=== PATIENT | male | born 1995 | race Two or more races ===

== ENCOUNTER 2017-09-05 17:40 | Emergency (ER) | payer SELFPAY ==
[~2017-09-05] VITALS: Ht 180.3 cm; Wt 57.5 kg
[2017-09-05] MEDS ORDERED: ONDANSETRON ODT 4 MG PO ONE (18:00)
[2017-09-05] MEDS ORDERED: SODIUM CHLORIDE FLUSH 10ML SYR IVF ONE (18:00)
[2017-09-05] MEDS ORDERED: SODIUM CHLORIDE 0.9% 1,000ML IVBOLUS ONE (18:00)
[2017-09-05] MEDS ORDERED: ONDANSETRON ODT 4 MG ONE ×2 (18:06→18:37)
[2017-09-05 18:30] LABS: BASOPHILS # (AUTO) 0.03 x10^3/uL (0-0.3); BASOPHILS % (AUTO) 0 % (0-1); EOSINOPHILS # (AUTO) 0.01 x10^3/uL (0-0.8); EOSINOPHILS % (AUTO) 0 % (1-7); LYMPHOCYTES # (AUTO) 1.04 x10^3/uL (1-6.1); LYMPHOCYTES % (AUTO) 13 % (22-44); MD NO; MEAN CORPUSCULAR HEMOGLOBIN 30.4 pg (27.5-34.5); MEAN CORPUSCULAR HGB CONC 33.7 g/dL (33.2-36.2); MEAN CORPUSCULAR VOLUME 90.4 fL (81-97); MEAN PLATELET VOLUME 8.8 fL (7.4-10.4); MONOCYTES # (AUTO) 0.29 x10^3/uL (0-1.4); MONOCYTES % (AUTO) 4 % (2-9); NEUTROPHILS % (AUTO) 83 % (42-75); PLATELET COUNT 240 x10^3/uL (130-400); RED BLOOD COUNT 5.49 x10^6/uL (4.38-5.82); RED CELL DISTRIBUTION WIDTH 13.3 % (9.4-14.8)
[2017-09-05 18:33] LABS: ALANINE AMINOTRANSFERASE 47 U/L (12-78); ALBUMIN 4.7 g/dL (3.4-5.0); ANION GAP 11 mmol/L (5-15); CALCIUM 9.8 mg/dL (8.5-10.1); CHLORIDE 108 mmol/L (98-107); CREATININE 1.05 mg/dL (0.7-1.3)
[2017-09-05 18:35] LABS: ALKALINE PHOSPHATASE 92 U/L (45-117); BILIRUBIN,TOTAL 1.2 mg/dL (0.2-1.0); TOTAL PROTEIN 8.8 g/dL (6.4-8.2)
[2017-09-05] MEDS ORDERED: DICYCLOMINE 20 MG TABLET ONE (18:37)
[2017-09-05] MEDS ORDERED: KETOROLAC 30 MG/1 ML ONE (18:37)
[2017-09-05] MEDS ORDERED: DICYCLOMINE 20 MG TABLET PO ONE (19:00)
[2017-09-05] MEDS ORDERED: KETOROLAC 30 MG/1 ML IM ONE (19:00)
[2017-09-05 20:08] VITALS: BP 113/80
== END 2017-09-05 20:10 | disposition home or self-care (01) ==
LOC: ED 20:04
DX: R10.9 Unspecified abdominal pain (principal); R11.2 Nausea with vomiting, unspecified
CPT/HCPCS: 36415; 80053; 83690; 85025; 96372; 99284; J1885; Q0162